=== PATIENT | male | born 2000 | race Caucasian/White ===

== ENCOUNTER 2022-04-05 14:30 | Emergency (ER) | payer SELFPAY ==
[~2022-04-05] VITALS: Ht 162.6 cm; Wt 63.5 kg
[~2022-04-05 14:30] MED LIST: UNK ANTIBIOTIC PO
[2022-04-05 14:34] VITALS: BP 131/80
--- NOTE | 2022-04-05 14:45 | NUR ---
RIGHT HAND WOUND IRRIGATED USING BETADINE AND NORMAL SALINE
--- NOTE | 2022-04-05 14:56 | NUR ---
DEBBI FAUSTIN AT BEDSIDE FOR EVAL
--- NOTE | 2022-04-05 15:00 | NUR ---
PT STATES THAT HE DOESNT WANT THE TETANUS VACCINE
[2022-04-05] MEDS ORDERED: BACITRACIN OINT 500 UNITS/GM PKT TP ONE ×2 (15:03→15:05)
--- NOTE | 2022-04-05 15:04 | NUR ---
21 Y/O MALE BIB SELF C/O RIGHT HAND DOG BITE, DIRECTOR ADULT LESS THAN 3 SECONDS, PT ABLE TO CLENCH HAND, NO ACTIVE BLEEDING NOTED. PER PT HE HAD AN ARGUMENT WITH HIS MOTHER AND THE DOG BIT HIS HAND. [facility] PMH: DENIES
--- NOTE | 2022-04-05 15:07 | NUR ---
NON ADHERENT X 2 TO R HAND. + CMS
[2022-04-05] MEDS ORDERED: BACI1PAC6 TP (15:20)
[2022-04-05] MEDS ORDERED: AMOX1TAB8 PO (15:20)
[2022-04-05] MEDS ORDERED: IBUP-2213 PO (15:20)
[2022-04-05 15:36] VITALS: BP 131/80
--- NOTE | 2022-04-05 15:36 | NUR ---
Patient discharged with v/s stable. Written and verbal after care instructions given and explained. Patient alert, oriented and verbalized understanding of instructions. Ambulatory with steady gait. All questions addressed prior to discharge. ID band removed. Patient advised to follow up with PMD. Rx of AMOX-CLAV, MOTRIN, BACITRACIN given. Patient educated on indication of medication including possible reaction and side effects. Opportunity to ask questions provided and answered.
== END 2022-04-05 15:36 | disposition home or self-care (01) ==
LOC: MED 14:30
DX: S61.451A Open bite of right hand, initial encounter (principal); R03.0 Elevated blood-pressure reading, without diagnosis of hypertension; W54.0XXA Bitten by dog, initial encounter; Y93.89 Activity, other specified; Y92.89 Other specified places as the place of occurrence of the external cause; Y99.8 Other external cause status
CPT/HCPCS: 99283